=== PATIENT | male | born 1945 | race Caucasian/White ===

== ENCOUNTER 2019-07-06 15:50 | Outpatient (CLI) | payer MEDICARE, BC ==
[2019-07-06 18:52] LABS: ALBUMIN 4.3 g/dL (3.2-5.5); CALCIUM 9.3 mg/dL (8.5-10.3); CREATININE 1.3 mg/dL (0.6-1.2); MAGNESIUM 1.6 mg/dL (1.7-2.8); PHOSPHORUS 2.6 mg/dL (2.5-4.6)
== END 2019-07-06 15:51 | disposition home or self-care (01) ==
LOC: LAB.S 15:50
DX: E87.5 Hyperkalemia (principal)
CPT/HCPCS: 36415; 80069; 83735